=== PATIENT | male | born 1950 | race Caucasian/White ===

== ENCOUNTER 2018-08-30 15:26 | Emergency (ER) | payer MEDICARE, BC ==
[~2018-08-30] VITALS: Ht 167.6 cm; Wt 72.6 kg
[2018-08-30 15:31] VITALS: BP 123/71
== END 2018-08-30 16:29 | disposition home or self-care (01) ==
LOC: ER 15:27
DX: I83.892 Varicose veins of left lower extremity with other complications (principal); I10 Essential (primary) hypertension
CPT/HCPCS: 99283; A6402; A6403

== ENCOUNTER 2019-11-25 12:59 | Emergency (ER) | payer MEDICARE, BC ==
[~2019-11-25] VITALS: Ht 170.2 cm; Wt 72.6 kg
[2019-11-25 13:05] VITALS: BP 97/60
--- NOTE | 2019-11-25 13:32 | NUR ---
AT BEDSIDE FOR EVAL.
--- NOTE | 2019-11-25 14:07 | NUR ---
PT IS WHEELED TO CT SCAN VIA [facility].
--- NOTE | 2019-11-25 15:52 | NUR ---
Patient discharged to home in stable condition. Written and verbal after care instructions given. Patient verbalizes understanding of instruction.
== END 2019-11-25 15:52 | disposition home or self-care (01) ==
LOC: ER 12:59
DX: K59.00 Constipation, unspecified (principal)

== ENCOUNTER 2020-02-15 03:45 | Emergency (ER) | payer MEDICARE, BC ==
--- NOTE | 2020-02-15 07:14 | NUR ---
SEE DOWNTIME REPORTS AND FORMS PLEASE.
== END 2020-02-15 07:16 | disposition home or self-care (01) ==
LOC: ER 03:45
DX: M54.2 Cervicalgia (principal); G89.29 Other chronic pain

== ENCOUNTER 2020-02-17 04:10 | Emergency (ER) | payer MEDICARE, BC ==
[~2020-02-17] VITALS: Ht 170.2 cm; Wt 68.0 kg
[2020-02-17 04:11] VITALS: BP 163/106
--- NOTE | 2020-02-17 04:20 | NUR ---
PATIENT CAME TO ER C/O POSTERIOR NECK PAIN. PATIENT STATES HE LAST TOOK NORCO YESTERDAY NIGHT (02/14) AND "IT DID NOT WORK". PATIENT IS AAOX4. AMBULATORY WITH A STEADY GAIT. PATIENT STATES THAT HE HAS SOMEONE TO CALL TO PICK HIM UP. BREATHING EVENLY AND UNLABORED ON ROOM AIR.
[2020-02-17] MEDS ORDERED: MORPHINE SULFATE INJ 4 MG/ML DISP.SYRIN ONE (04:23)
--- NOTE | 2020-02-17 04:24 | NUR ---
PATIENT STATES THAT HE LAST TOOK MORPHINE OR NORCO ABOUT 2 HOURS AGO.
--- NOTE | 2020-02-17 04:25 | NUR ---
IS NOTIFIED OF SITUATION.
--- NOTE | 2020-02-17 04:27 | NUR ---
PATIENT REFUSED TO ALLOW ME TO TAKE HIS VITAL SIGNS.
--- NOTE | 2020-02-17 04:28 | NUR ---
PATIENT STATES THAT HIS LAST ORAL MEDICATION NARCOTICS WAS LONGER THAN 2 HOURS. MD IS NOTIFIED.
--- NOTE | 2020-02-17 04:29 | NUR ---
PATIENT STATES, "I WANT TO LEAVE. I'M FEELING TIRED, I DON'T WANT YOU TO TAKE MY BLOOD PRESSURE." NOTIFIED.
[2020-02-17] MEDS ORDERED: MORPHINE SULFATE INJ 2 MG/ML DISP.SYRIN IM ONE ×2 (04:30)
--- NOTE | 2020-02-17 04:30 | NUR ---
"I AM GOING TO LEAVE". PATIENT IS EXPLAINED TO THE DANGERS OF LEAVING WITHOUT TAKING VITAL SIGNS AND FOR MONITORING. PATIENT IS UNWILLING TO STAY. PATIENT ELOPED. MD IS NOTIFIED.
== END 2020-02-17 04:33 | disposition left against medical advice (07) ==
LOC: ER 04:10
DX: M40.292 Other kyphosis, cervical region (principal); M48.02 Spinal stenosis, cervical region; I10 Essential (primary) hypertension
CPT/HCPCS: 96372; 99283; J2270

== ENCOUNTER 2020-02-19 21:22 | Emergency (ER) | payer MEDICARE, BC ==
[~2020-02-19] VITALS: Ht 170.2 cm; Wt 68.0 kg
[2020-02-19 21:30] VITALS: BP 114/82
[2020-02-19] MEDS ORDERED: MORPHINE SULFATE INJ 2 MG/ML DISP.SYRIN ONE (21:38)
--- NOTE | 2020-02-19 21:48 | NUR ---
PATIENT CALLED ISMAEL KUMAR (NEIGHBOR) TO PICK PATIENT UP.
--- NOTE | 2020-02-19 21:49 | NUR ---
PATIENT C/O CHRONIC POSTERIOR NECK PAIN . PATIENT STATES THAT HE RECENTLY HAD HIS MRI DONE AND IS SCHEDULED FOR A SURGERY IN 2 DAYS AND NEEDS PAIN MEDICATION TO LAST HIM UNTIL THE DAY OF SURGERY. AAOX4. NO SOB .BREATHING EVENLY AND UNLABORED ON ROOM AIR.
[2020-02-19] MEDS ORDERED: MORPHINE SULFATE INJ 2 MG/ML DISP.SYRIN IM ONE (22:00)
--- NOTE | 2020-02-19 22:01 | NUR ---
PATIENT IS PICKED UP BY NEIGHBOR.
--- NOTE | 2020-02-19 22:07 | NUR ---
Patient discharged to home in stable condition. Written and verbal after care instructions given. Patient verbalizes understanding of instruction.
== END 2020-02-19 22:08 | disposition home or self-care (01) ==
LOC: ER 21:25
DX: M54.2 Cervicalgia (principal); G89.29 Other chronic pain; I10 Essential (primary) hypertension
CPT/HCPCS: 96372; 99283; J2270

== ENCOUNTER 2020-02-22 21:42 | Emergency (ER) | payer MEDICARE, BC ==
[~2020-02-22] VITALS: Ht 170.2 cm; Wt 62.6 kg
[2020-02-22 21:42] VITALS: BP 105/69
--- NOTE | 2020-02-22 22:37 | NUR ---
PT REFUSE [facility]. PT STATES "I DON'T NEED A DISCHARGE INSTRUCTION, I DIDN'T GET ANYTHING SO I AM NOT SIGNING IT".
== END 2020-02-22 22:41 | disposition home or self-care (01) ==
LOC: ER 21:48
DX: G89.29 Other chronic pain (principal); M54.2 Cervicalgia; M47.9 Spondylosis, unspecified; I10 Essential (primary) hypertension

== ENCOUNTER 2020-02-27 17:27 | Emergency (ER) | payer MEDICARE, BC ==
[~2020-02-27] VITALS: Ht 167.6 cm; Wt 63.0 kg
[2020-02-27 17:38] VITALS: BP 138/71
--- NOTE | 2020-02-27 17:48 | NUR ---
AT BEDSIDE FOR BLOOD DRAW.
--- NOTE | 2020-02-27 18:05 | NUR ---
HEAT REGULATOR AT BEDSIDE FOR WRIST SPLINT
--- NOTE | 2020-02-27 18:17 | NUR ---
Patient discharged to home in stable condition. Written and verbal after care instructions given. Patient verbalizes understanding of instruction.
--- NOTE | 2020-02-27 18:17 | NUR ---
Edwin villar in [facility] - 02/27/20 at 1818 by CELENA Patient discharged to home in stable condition. Written and verbal after care instructions given. Patient verbalizes understanding of instruction.
== END 2020-02-27 18:17 | disposition home or self-care (01) ==
LOC: ER 17:32
DX: M77.8 Other enthesopathies, not elsewhere classified (principal); I10 Essential (primary) hypertension; G89.29 Other chronic pain
CPT/HCPCS: 29125; 99283; L3763

== ENCOUNTER 2021-09-08 15:40 | Emergency (ER) | payer MEDICARE, BC ==
[~2021-09-08] VITALS: Ht 170.2 cm; Wt 74.8 kg
--- NOTE | 2021-09-08 15:45 | NUR ---
MALDONADO 89 FROM HOME C/O R LOWER LEG BLEEDING "MY CAT SCRATCH MY LEG AND HIT A VARICOSE VEIN. NON STOP BLEEDING" 500ML NS GIVEN BY EMS DERRICK CAR OPERATOR. TO ER BED 2, APPLIED PRESSURE TO BLEEDING AREA. DR LOWE AT BEDSIDE. HOOKED TO MONITOR. VSS.
[2021-09-08] MEDS ORDERED: LIDOCAINE /MPF 1% VIAL 5 ML VIAL ONE (16:01)
--- NOTE | 2021-09-08 17:15 | NUR ---
APPLIED DRESSING. NO BLEEDING NOTED
[2021-09-08 17:18] LABS: BASOPHILS % (AUTO) 0.4 % (0.0-2.0); EOSINOPHILS % (AUTO) 2.3 % (0.0-6.0); HEMATOCRIT 37 % (39-51); HEMOGLOBIN 12.1 g/dL (13.5-17.5); LYMPHOCYTES # (AUTO) 1.1 K/uL (0.8-4.8); LYMPHOCYTES % (AUTO) 12.1 % (20.0-44.0); MEAN CORPUSCULAR HGB CONC 33 g/dl (31.0-36.0); MEAN CORPUSCULAR VOLUME 90 fL (80-96); MONOCYTES # (AUTO) 0.6 K/uL (0.1-1.30); MONOCYTES % (AUTO) 6.9 % (2.0-12.0); NEUTROPHILS # (AUTO) 7.3 K/uL (1.8-8.9); NEUTROPHILS % (AUTO) 78.3 % (43.0-81.0); PLATELET COUNT (AUTO) 314 K/uL (150-450); RED BLOOD CELL COUNT(AUTO) 4.08 MIL/uL (4.5-6.0); WHITE BLOOD COUNT (AUTO) 9.3 K/uL (4.3-11.0)
[2021-09-08] MEDS ORDERED: GELATIN SPONGE,ABSORBABLE 1 SPONGE SPONGE TP ONE (17:28)
--- NOTE | 2021-09-08 17:41 | NUR ---
Patient discharged to home in stable condition. Written and verbal after care instructions given. Patient verbalizes understanding of instruction.
[2021-09-08 17:44] VITALS: BP 110/65
== END 2021-09-08 17:44 | disposition home or self-care (01) ==
LOC: ER 16:55
DX: I83.891 Varicose veins of right lower extremity with other complications (principal); I10 Essential (primary) hypertension; G89.29 Other chronic pain; Z60.2 Problems related to living alone
CPT/HCPCS: 12001; 36415; 85025; 99283; A6403; J3490

== ENCOUNTER 2022-05-19 18:13 | Emergency (ER) | payer MEDICARE, BC ==
[~2022-05-19] VITALS: Ht 167.6 cm; Wt 79.4 kg
--- NOTE | 2022-05-19 18:50 | NUR ---
BLOOD DRAWN AND SENT TO LAB
[2022-05-19] MEDS ORDERED: ONDANSETRON HCL/PF 4 MG/2 ML VIAL ONE (18:51)
[2022-05-19] MEDS: ONDANSETRON HCL/PF 4 MG/2 ML VIAL IV ONE (18:55)
--- NOTE | 2022-05-19 18:57 | NUR ---
DOP. U/S TECH AT BEDSIDE
[2022-05-19] MEDS: IV NS 0.9% 1,000 ML IV ONE (19:30)
[2022-05-19 19:57] LABS: ALBUMIN 3.2 g/dL (3.4-5.0); BILIRUBIN,DIRECT 0.1 mg/dL (0.0-0.2); BILIRUBIN,TOTAL 0.6 mg/dL (0.2-1.0); CALCIUM, SERUM 8.1 mg/dL (8.5-10.1); CREATININE 1.2 mg/dL (0.6-1.3); POTASSIUM 3.8 mmol/L (3.5-5.1); TOTAL PROTEIN, SERUM 6.3 g/dL (6.4-8.2)
[2022-05-19 20:03] LABS: BASOPHILS % (AUTO) 0.2 % (0.0-2.0); EOSINOPHILS % (AUTO) 1.2 % (0.0-6.0); HEMATOCRIT 37 % (39-51); LYMPHOCYTES # (AUTO) 1.7 K/uL (0.8-4.8); LYMPHOCYTES % (AUTO) 16.4 % (20.0-44.0); MEAN CORPUSCULAR HGB CONC 33 g/dl (31.0-36.0); MEAN CORPUSCULAR VOLUME 89 fL (80-96); MONOCYTES # (AUTO) 0.7 K/uL (0.1-1.30); MONOCYTES % (AUTO) 6.6 % (2.0-12.0); NEUTROPHILS # (AUTO) 7.8 K/uL (1.8-8.9); NEUTROPHILS % (AUTO) 75.6 % (43.0-81.0); PLATELET COUNT (AUTO) 351 K/uL (150-450); RED BLOOD CELL COUNT(AUTO) 4.09 MIL/uL (4.5-6.0); WHITE BLOOD COUNT (AUTO) 10.3 K/uL (4.3-11.0)
--- NOTE | 2022-05-19 22:46 | NUR ---
BLOOD BANK LABORATORY TECHNICIAN AT BEDSIDE
[2022-05-19 23:16] LABS: HEMOGLOBIN 11.4 g/dL (13.5-17.5)
[2022-05-19] MEDS ORDERED: ONDA4TAB5 PO (23:28)
[2022-05-20 01:11] VITALS: BP 112/65
== END 2022-05-20 01:12 | disposition home or self-care (01) ==
LOC: ER 18:18
DX: I83.891 Varicose veins of right lower extremity with other complications (principal); I10 Essential (primary) hypertension; M54.2 Cervicalgia; G89.29 Other chronic pain; Z60.2 Problems related to living alone
CPT/HCPCS: 99284; 96374; 93971; 93926; 96361; 85025; 85027; 80048; 80076; 36415; 85730; J2405; A6403

== ENCOUNTER 2023-08-11 00:11 | Emergency (ER) | payer MEDICARE, BC ==
[~2023-08-11] VITALS: Ht 165.1 cm; Wt 63.5 kg
[~2023-08-11 00:11] MED LIST: ONDA4TAB5 PO
[2023-08-11] MEDS ORDERED: GELATIN SPONGE,ABSORBABLE 1 EA SPONGE TP ONE (00:44)
[2023-08-11] MEDS: CELLULOSE,OXIDIZED 1 EACH EACH MC ONE (00:56)
[2023-08-11 01:12] LABS: BASOPHILS % (AUTO) 0.2 % (0.0-2.0); EOSINOPHILS # (AUTO) 0.1 K/uL (0.0-0.7); EOSINOPHILS % (AUTO) 0.6 % (0.0-6.0); HEMATOCRIT 29 % (39-51); HEMOGLOBIN 9.4 g/dL (13.5-17.5); LYMPHOCYTES # (AUTO) 1.1 K/uL (0.8-4.8); LYMPHOCYTES % (AUTO) 11.8 % (20.0-44.0); MEAN CORPUSCULAR HEMOGLOBIN 30 PG (26.0-33.0); MEAN CORPUSCULAR HGB CONC 33 g/dl (31.0-36.0); MEAN CORPUSCULAR VOLUME 92 fL (80-96); MONOCYTES # (AUTO) 0.4 K/uL (0.1-1.30); MONOCYTES % (AUTO) 4.5 % (2.0-12.0); NEUTROPHILS % (AUTO) 82.9 % (43.0-81.0); PLATELET COUNT (AUTO) 347 K/uL (150-450); RED BLOOD CELL COUNT(AUTO) 3.12 MIL/uL (4.5-6.0); RED CELL DISTRIBUTION WIDTH 13.6 % (11.5-15.0); WHITE BLOOD COUNT (AUTO) 9.6 K/uL (4.3-11.0)
[2023-08-11 01:24] LABS: INR 1.04 (0.91-1.10); PARTIAL THROMBOPLASTIN TIME 25.5 SEC (24.3-34.3)
[2023-08-11 01:56] VITALS: BP 118/78; TEMP 98; O2SAT 98
== END 2023-08-11 01:57 | disposition home or self-care (01) ==
LOC: ER 00:12
DX: I83.891 Varicose veins of right lower extremity with other complications (principal); I10 Essential (primary) hypertension; D64.9 Anemia, unspecified
CPT/HCPCS: 36415; 85025-TC; 85730-TC